=== PATIENT | female | born 1985 | race African-American/Black ===

== ENCOUNTER 2017-04-08 12:34 | Emergency (ER) | payer OTHER ==
--- NOTE | ~2017-04-08 | CT4 ---
[facility] A Service of [facility] RADIOLOGY TEXT RESULTS PATIENT: BRUCE REYNOLDS LOCATION: SED : [birth year] UNIT #: [id number] AGE: [address]: Jovana Lozano MD SEX: F ORDER DR: [id number] [address] [address] [id number] MR#: [id number] Acc #: [id number] NAME: BRUCE REYNOLDS : 1985 SEX: F STUDY DATE/TIME: 04/08/2017 15:56 UNIT: SED ROOM: STUDY DESCRIPTION: CT Abd and Pelv Wo Cont Attending Physician: Jovana Lozano M.D. Ordering Physician: Jovana Lozano M.D. Primary Care Physician: No Primary Care Physician MEDICAL IMAGING REPORT This report is preliminary unless electronic signature is present. EXAM CT abdomen and pelvis without contrast. INDICATION Upper abdominal pain and vomiting which started yesterday. TECHNIQUE CT of the abdomen and pelvis was performed without contrast. Coronal and sagittal reformatted images were obtained. This CT exam was performed with one or more of the following radiation dose reduction techniques: automatic exposure control, adjustment of mA and/or kV according to patient size, and iterative reconstruction. COMPARISON Comparison with 09/13/2015. FINDINGS There is minimal dependent atelectasis in the lungs. The liver is unremarkable. Cholecystectomy. The spleen is unremarkable. Kidneys are unremarkable. The adrenal glands are unremarkable. Pancreas is unremarkable. PELVIS: There is a 4.4 cm cyst in the adnexa on the left which given the patient's age is probably physiologic. The colon is unremarkable. The appendix is normal. The remainder of the pelvis is unremarkable. The bone windows are unremarkable. IMPRESSION 1. No acute findings. 2. There is a 4.4 cm adnexal cyst on the left which is most likely physiologic given the patient's age. 3. Normal appendix. 4. No evidence for bowel obstruction. [facility] A Service [facility] RADIOLOGY TEXT RESULTS PATIENT: BRUCE REYNOLDS LOCATION: SED : [birth year] UNIT #: [id number] AGE: [address]: Jovana Lozano MD SEX: F ORDER DR: 5. Cholecystectomy. Dictated by... Deshaun Galan M.D. THIS IS AN ELECTRONICALLY VERIFIED REPORT Deshaun Galan M.D. at 04/09/2017 8:16 AM YAMEL/[email or web address] TD: 04/08/2017 22:49 JOB #: [id number] MEDICAL IMAGING REPORT Page 1 of 1
[~2017-04-08 12:34] MED LIST: FLEXERIL10 M1 PO; FLONASE 0.05% N16 GM; IBUPROFEN; IBUPROFEN800 MG PO; NAPROSYN375 MG PO; NO MEDICATIONS; ROBAXIN500 MG PO; VOLTAREN75 MG PO
[2017-04-08 13:12] LABS: URINE APPEARANCE CLEAR; URINE BILIRUBIN NEG (NEG); URINE BLOOD 1+ (NEG); URINE COLOR YELLOW; URINE GLUCOSE NEG (NORM); URINE KETONE NEG (NEG); URINE LEUKOCYTE ESTERASE 1+ (NEG); URINE NITRATE NEG (NEG); URINE PROTEIN NEG (NEG); URINE SPECIFIC GRAVITY 1.025 (1.003-1.035); URINE UROBILINOGEN 0.2 MG/DL (NORM)
[2017-04-08 13:12] LABS: BASOPHIL# 0.1 X10e3 (0-0.3); BASOPHIL% 1.2 % (0-2.5); EOSINOPHIL# 0.3 X10e3 (0-0.7); EOSINOPHIL% 4.1 % (0.0-7.0); HEMATOCRIT 33.5 % (35.0-45.0); HEMOGLOBIN 10.2 gm/dL (12.0-16.0); LYMPHOCYTE# 1.9 X10e3 (1.0-3.5); LYMPHOCYTE% 22.7 % (17.0-45.0); MEAN CELL VOLUME 64.3 FL (83-96); MEAN CORPUSCULAR HEMOGLOBIN 19.6 PG (28-34); MEAN CORPUSCULAR HGB CONC 30.5 g/dL (30-36); MEAN PLATELET VOLUME 8.6 FL (6.5-11.5); MONOCYTE# 0.4 X10e3 (0-1.0); MONOCYTE% 4.8 % (3.0-12.0); NEUTROPHIL# 5.7 X10e3 (1.5-7.1); NEUTROPHIL% 67.2 % (40-75); PLATELET COUNT 320 X10e3 (140-420); RED BLOOD COUNT 5.21 X10e (3.90-5.30); RED CELL DISTRIBUTION WIDTH 21.4 % (11.0-15.5); WHITE BLOOD COUNT 8.5 X10e3 (4.0-10.5)
[2017-04-08 13:14] LABS: DIFF IND NO
[2017-04-08 13:15] LABS: MICRO INDICATED? YES
[2017-04-08 13:28] LABS: CULTURE INDICATED? NO; URINE BACTERIA NEG (NEG); URINE SQUAMOUS EPITHELIAL CELL MODERATE /[HPF]
[2017-04-08 13:33] LABS: ALBUMIN SERUM 3.2 g/dL (3.5-5.0); BILIRUBIN, DIRECT 0.1 mg/dL (0.0-0.2); BILIRUBIN,INDIRECT 0.3 mg/dL (0.0-0.9); BILIRUBIN,TOTAL 0.4 mg/dL (0.2-2.0); BUN/CREATININE RATIO 16.66; CALCIUM SERUM 8.2 mg/dL (8.4-10.2); CREATININE SERUM 0.6 mg/dL (0.6-1.4); GLOM FILT RATE Estimated 140.8 mL/min (>60); POTASSIUM 3.5 mmol/L (3.5-5.1); PROTEIN TOTAL SERUM 6.8 g/dL (6.0-8.3)
== END 2017-04-08 17:57 | disposition home or self-care (01) ==
LOC: SED 12:34
PROVIDERS: Student in an Organized Health Care Education/Training Program
DX: K29.70 Gastritis, unspecified, without bleeding (principal); Z90.49 Acquired absence of other specified parts of digestive tract
CPT/HCPCS: 36415; 74176; 80048; 80076; 81003; 82150; 83690; 84703; 85025; 96374; 96375; 99284; C9113; J1170; J2270; J2405